=== PATIENT | male | born 1950 | race Caucasian/White ===

== ENCOUNTER 2018-04-25 20:33 | Emergency (ER) | payer MEDICAID, OTHER ==
[~2018-04-25] VITALS: Ht 185.4 cm; Wt 129.3 kg
[2018-04-25 21:26] VITALS: BP 135/73
[2018-04-25 23:59] LABS: Basophils # (auto) 0.1 uL; Basophils % (auto) 0.5 % (0.0-2.0); Eosinophils # (auto) 0.3 uL; Eosinophils % (auto) 2.6 % (0.0-7.0); Hematocrit 42.9 % (41.0-53.0); Hemoglobin 13.8 g/dL (13.5-17.5); Lymphocytes # (auto) 1.7 uL; Lymphocytes % (auto) 14.1 % (10.0-50.0); Mean Corpuscular Hemoglobin 28.6 pg (28.0-32.0); Mean Corpuscular Hgb Conc. 32.3 g/dL (32.0-36.0); Mean Corpuscular Volume 88.5 fL (80.0-100.0); Monocytes # (auto) 1.6 uL; Monocytes % (auto) 13.7 % (0.0-12.0); Neutrophils # (auto) 8.1 uL; Neutrophils % (auto) 69.1 % (37.0-80.0); Platelet Count (auto) 330 10^3/uL (140-450); Red Blood Cells 4.84 10^6/uL (4.5-5.90); White Blood Cell 11.7 10^3/uL (4.4-10.8)
[2018-04-26 00:24] LABS: Albumin 2.4 g/dL (3.4-5.0); BUN/Creatinine Ratio 13.3; Potassium 4.2 mmol/L (3.5-5.1)
[2018-04-26 00:33] LABS: Bilirubin, Total 0.4 mg/dL (0.2-1.0); Calcium 8.8 mg/dL (8.5-10.1); Total Protein 8.2 g/dL (6.4-8.2)
== END 2018-04-26 06:35 | disposition left against medical advice (07) ==
LOC: ER 20:33
DX: E11.621 Type 2 diabetes mellitus with foot ulcer (principal); Z53.21 Procedure and treatment not carried out due to patient leaving prior to being seen by health care provider
CPT/HCPCS: 36415; 73700; 80053; 83605; 85025; 87040